=== PATIENT | female | born 1940 | race Caucasian/White ===

== ENCOUNTER → 2016-09-07 | Outpatient (CLI) | payer MEDICARE, BC ==
[~2016-09-07] MED LIST: ASPIRIN 81M81 MG/TA2 PO; COZAAR100 MG PO; DHEA 50 MG TAB1 EACH PO; DHEA PO; ELIQUIS 5MG PO; LASIX 20MG TABL20 MG PO; NATURAL POTASS595 MG PO; THE MEDICINE S200 M2 PO; TOPROL XL 50MG50 MG PO; VITAMIN D 400400 IU PO; ZESTRIL 10MG10 MG PO; ZOCOR 10MG10 MG PO
== END ==
LOC: MC.RAD 14:53
DX: Z12.31 Encounter for screening mammogram for malignant neoplasm of breast (principal); R92.1 Mammographic calcification found on diagnostic imaging of breast

== ENCOUNTER → 2017-02-27 | Outpatient (CLI) | payer MEDICARE, BC | LOC: COL.CARD 14:04 | DX: I34.0 Nonrheumatic mitral (valve) insufficiency (principal); Z86.79 Personal history of other diseases of the circulatory system ==

== ENCOUNTER → 2017-04-03 | Outpatient (CLI) | payer MEDICARE, BC | LOC: COL.PUL 10:10 | DX: R06.09 Other forms of dyspnea (principal); Z87.891 Personal history of nicotine dependence ==

== ENCOUNTER 2017-04-20 11:22 | Day surgery (SDC) | payer MEDICARE, BC ==
[~2017-04-20] VITALS: Ht 172.7 cm; Wt 77.7 kg
[2017-04-20] VITALS (11 sets, daily range): BP systolic 111–153; BP diastolic 53–81; PULSE 53–67; TEMP 97.9
[~2017-04-20 11:22] MED LIST changes: -ASPIRIN 81M81 MG/TA2 PO; -COZAAR100 MG PO; -DHEA 50 MG TAB1 EACH PO; -DHEA PO; -ELIQUIS 5MG PO; -NATURAL POTASS595 MG PO; -THE MEDICINE S200 M2 PO; -TOPROL XL 50MG50 MG PO; -VITAMIN D 400400 IU PO
[2017-04-20 12:01] LABS: HEMATOCRIT 41.5 % (37.0-47.0); HEMOGLOBIN 14.1 g/dl (12.5-16.0); MEAN CELL VOLUME 89 fl (80.0-100.0); MEAN CORPUSCULAR HEMOGLOBIN 30 pg (27.0-31.0); MEAN CORPUSCULAR HGB CONC 34 g/dl (33.0-37.0); MEAN PLATELET VOLUME 10.7 fl (7.4-10.4); PLATELET COUNT 156 K/mm3 (130-400); RED BLOOD COUNT 4.66 M/mm3 (4.10-5.30); REDCELL DISTRIBUTION WIDTH-CV 12.7 % (11.5-14.5); WHITE BLOOD COUNT 6.4 K/mm3 (4.8-10.8)
[2017-04-20] MEDS ORDERED: COZAAR100 MG PO (12:09)
[2017-04-20] MEDS ORDERED: TOPROL XL 50MG50 MG PO (12:10)
[2017-04-20 12:14] LABS: CALCIUM 9.4 mg/dL (8.4-10.2); CREATININE, serum 0.82 mg/dL (0.52-1.25); POTASSIUM 4.5 mmol/L (3.4-5.0)
[2017-04-20] MEDS ORDERED: ASPIRIN 81M81 MG/TA2 PO (13:07)
[2017-04-20] MEDS ORDERED: THE MEDICINE S200 M2 PO (13:14)
[2017-04-20] MEDS ORDERED: DHEA PO (13:15)
[2017-04-20] MEDS ORDERED: ELIQUIS 5MG PO (13:16)
[2017-04-20] MEDS ORDERED: NATURAL POTASS595 MG PO (13:16)
[2017-04-20] MEDS ORDERED: VITAMIN D 400400 IU PO (13:17)
[2017-04-20] MEDS ORDERED: DHEA 50 MG TAB1 EACH PO (13:18)
[2017-04-20 14:12] LABS: INR 1.1 (0.8-3.0); PROTHROMBIN TIME 12.1 SECONDS (9.7-12.8)
== END 2017-04-20 18:46 | disposition home or self-care (01) ==
LOC: EUO 11:22 → COL.CAR 11:30 → EUO 18:46
PROVIDERS: Internal Medicine Cardiovascular Disease
DX: I34.0 Nonrheumatic mitral (valve) insufficiency (principal); I48.0 Paroxysmal atrial fibrillation; I10 Essential (primary) hypertension; J30.9 Allergic rhinitis, unspecified; R59.1 Generalized enlarged lymph nodes; E78.5 Hyperlipidemia, unspecified; M19.90 Unspecified osteoarthritis, unspecified site; E04.1 Nontoxic single thyroid nodule; Z90.710 Acquired absence of both cervix and uterus; Z79.01 Long term (current) use of anticoagulants; Z87.891 Personal history of nicotine dependence; Z85.118 Personal history of other malignant neoplasm of bronchus and lung; Z82.5 Family history of asthma and other chronic lower respiratory diseases; Z82.62 Family history of osteoporosis; Z82.49 Family history of ischemic heart disease and other diseases of the circulatory system; Z83.3 Family history of diabetes mellitus
CPT/HCPCS: C1769; G9654; J2250; J2704; J3010; Q9967

== ENCOUNTER → 2017-12-08 | Outpatient (REF) ==
[~2017-12-08] MED LIST changes: +ASPIRIN 81M81 MG/TA2 PO; +BETAPACE 80MG80 MG PO; +COZAAR100 MG PO; +DHEA 50 MG TAB1 EACH PO; +DHEA PO; +ELIQUIS 5MG PO; +MAGNESIUM250 M1 PO; +NATURAL POTASS595 MG PO; +THE MEDICINE S200 M2 PO; +TOPROL XL 50MG50 MG PO; +VITAMIN B COMPL1 SGL PO; +VITAMIN D 400400 IU PO
[2017-12-08 14:38] LABS: IRON,SERUM 37 ug/dL (35-150); LACTATE DEHYDROGENASE 603 U/L (313-618)
[2017-12-08 14:47] LABS: TOTAL IRON BINDING CAPACITY 236 ug/dL (265-497)
== END ==
LOC: ZLAB.WCH 14:15
PROVIDERS: Internal Medicine
DX: Z01.89 Encounter for other specified special examinations (principal)

== ENCOUNTER → 2019-02-15 | Outpatient (CLI) | payer MEDICARE, BC | LOC: COL.VAS 14:29 | DX: Z13.6 Encounter for screening for cardiovascular disorders (principal); M79.89 Other specified soft tissue disorders; M79.605 Pain in left leg ==

== ENCOUNTER → 2019-04-10 | Outpatient (CLI) | payer MEDICARE, BC | LOC: COL.RAD 12:58 | DX: E04.2 Nontoxic multinodular goiter (principal); E05.90 Thyrotoxicosis, unspecified without thyrotoxic crisis or storm ==

== ENCOUNTER → 2019-04-25 | Outpatient (CLI) | payer MEDICARE, BC | LOC: COL.RAD 12:55 | DX: E05.90 Thyrotoxicosis, unspecified without thyrotoxic crisis or storm (principal) | CPT/HCPCS: A9516 ==

== ENCOUNTER 2019-06-03 09:28 | Emergency (ER) | payer MEDICARE, BC ==
[~2019-06-03] VITALS: Ht 172.7 cm; Wt 74.1 kg
[2019-06-03 09:52] VITALS: TEMP 97.6
[2019-06-03 10:30] LABS: BASO # 0.1 (0.0-0.2); BASO % 0.5 % (0.0-2.0); EOS # 0.3 (0.0-0.7); EOS % 3.2 % (0-4.0); GRAN # 5.9 (1.4-6.5); GRAN % 64.7 % (42.2-75.2); HEMATOCRIT 43.2 % (37.0-47.0); HEMOGLOBIN 14.4 g/dl (12.5-16.0); LYMPH # 2.3 (1.2-3.4); LYMPH % 25.6 % (20.0-51.0); MEAN CELL VOLUME 84 fl (80.0-100.0); MEAN CORPUSCULAR HEMOGLOBIN 28 pg (27.0-31.0); MEAN CORPUSCULAR HGB CONC 33 g/dl (33.0-37.0); MEAN PLATELET VOLUME 11.1 fl (7.4-10.4); MONO # 0.5 (0.1-0.6); MONO % 5.9 % (1.7-9.3); PLATELET COUNT 194 K/mm3 (130-400); RED BLOOD COUNT 5.12 M/mm3 (4.10-5.30); REDCELL DISTRIBUTION WIDTH-CV 13.2 % (11.5-14.5)
[2019-06-03 10:32] LABS: INR 1.6 (0.8-3.0); PROTHROMBIN TIME 18.6 SECONDS (9.7-12.8)
[2019-06-03] MEDS ORDERED: LOPRESSOR 550 MG/TAB PO (10:34)
[2019-06-03 10:35] LABS: PARTIAL THROMBOPLASTIN TIME 37.1 SECONDS (26.0-37.0)
[2019-06-03 10:41] LABS: ALANINE AMINOTRANSFERASE < 6 U/L (9-52); ALBUMIN 4.1 gm/dL (3.5-5.0); ALKALINE PHOSPHATASE 85 U/L (50-136); ANION GAP 9 mmol/L (7-16); AST,SGOT 20 U/L (15-37); BILIRUBIN,TOTAL 0.9 mg/dL (0.0-1.0); BLOOD UREA NITROGEN 18 mg/dL (7-17); CALCIUM 9.3 mg/dL (8.4-10.2); CARBON DIOXIDE 27 mmol/L (22-30); CHLORIDE 101 mmol/L (98-107); CREATININE, serum 0.87 (0.52-1.25); GLUCOSE 147 mg/dL (74-106); POTASSIUM 3.7 mmol/L (3.4-5.0); SODIUM 137 mmol/L (137-145); TOTAL PROTEIN 7.9 gm/dL (6.4-8.2)
[2019-06-03 12:35] LABS: THYROID STIMULATING HORMONE < 0.015 uIU/mL (0.465-4.680)
[2019-06-03] MEDS ORDERED: AMOXICILLIN 8751 TAB PO (13:44)
[2019-06-03] MEDS ORDERED: ZOFRAN ODT4 MG PO (13:44)
[2019-06-03 14:19] VITALS: BP 125/69; PULSE 72
== END 2019-06-03 14:21 | disposition home or self-care (01) ==
LOC: COL.ER 09:28
PROVIDERS: Emergency Medicine
DX: K52.9 Noninfective gastroenteritis and colitis, unspecified (principal); Z79.82 Long term (current) use of aspirin; Z79.01 Long term (current) use of anticoagulants
CPT/HCPCS: C9113; J7030; Q9967

== ENCOUNTER → 2020-07-15 | Outpatient (CLI) | payer MEDICARE, BC ==
[~2020-07-15] MED LIST changes: +AMOXICILLIN 8751 TAB PO; +LOPRESSOR 550 MG/TAB PO; +ZOFRAN ODT4 MG PO
== END ==
LOC: DIA.ED 10:16
DX: E11.9 Type 2 diabetes mellitus without complications (principal); Z79.84 Long term (current) use of oral hypoglycemic drugs; E78.5 Hyperlipidemia, unspecified; I10 Essential (primary) hypertension
CPT/HCPCS: G0108

== ENCOUNTER 2021-03-24 11:00 | Emergency (ER) | payer MEDICARE, BC ==
[~2021-03-24] VITALS: Ht 172.7 cm; Wt 70.5 kg
[~2021-03-24 11:00] MED LIST changes: +COZAAR 50MG50 MG/TAB PO; -COZAAR100 MG PO
[2021-03-24 11:48] LABS: BASO # 0.1 (0.0-0.2); BASO % 0.9 % (0.0-2.0); EOS # 0.2 (0.0-0.7); EOS % 2.3 % (0-4.0); GRAN # 4.6 (1.4-6.5); GRAN % 60.3 % (42.2-75.2); HEMATOCRIT 41.9 % (37.0-47.0); HEMOGLOBIN 13.6 g/dl (12.5-16.0); LYMPH # 2.2 (1.2-3.4); LYMPH % 29.4 % (20.0-51.0); MEAN CELL VOLUME 91 fl (80.0-100.0); MEAN CORPUSCULAR HEMOGLOBIN 29 pg (27.0-31.0); MEAN CORPUSCULAR HGB CONC 33 g/dl (33.0-37.0); MEAN PLATELET VOLUME 10.9 fl (7.4-10.4); MONO # 0.5 (0.1-0.6); PLATELET COUNT 196 K/mm3 (130-400); RED BLOOD COUNT 4.63 M/mm3 (4.10-5.30); REDCELL DISTRIBUTION WIDTH-CV 13.2 % (11.5-14.5)
[2021-03-24 11:50] LABS: ALANINE AMINOTRANSFERASE 18 U/L (4-34); ALBUMIN 4.6 gm/dL (3.5-5.0); ALKALINE PHOSPHATASE 73 U/L (50-136); ANION GAP 14 mmol/L (7-16); AST,SGOT 26 U/L (15-37); BILIRUBIN,TOTAL 1.2 mg/dL (0.0-1.0); BLOOD UREA NITROGEN 34 mg/dL (7-17); CALCIUM 9.7 mg/dL (8.4-10.2); CARBON DIOXIDE 26 mmol/L (22-30); CHLORIDE 102 mmol/L (98-107); CREATININE, serum 1.08 (0.52-1.25); GLUCOSE 126 mg/dL (74-106); SODIUM 142 mmol/L (137-145); TOTAL PROTEIN 8.7 gm/dL (6.4-8.2)
[2021-03-24 12:15] LABS: TROPONIN-I < 0.012 ng/mL (0.000-0.035)
[2021-03-24 12:17] LABS: INR 1.8 (0.8-3.0); PROTHROMBIN TIME 19.7 SECONDS (9.7-12.8)
[2021-03-24 13:28] VITALS: BP 160/72; PULSE 40
== END 2021-03-24 13:28 | disposition home or self-care (01) ==
LOC: COL.ER 11:00
PROVIDERS: Physician Assistant
DX: R00.1 Bradycardia, unspecified (principal); I48.0 Paroxysmal atrial fibrillation; I10 Essential (primary) hypertension; E78.5 Hyperlipidemia, unspecified; E11.9 Type 2 diabetes mellitus without complications; Z98.890 Other specified postprocedural states; Z79.82 Long term (current) use of aspirin; Z79.899 Other long term (current) drug therapy
CPT/HCPCS: J7030

== ENCOUNTER 2021-03-31 08:22 | Day surgery (SDC) | payer MEDICARE, BC ==
[2021-03-31] VITALS (10 sets, daily range): BP systolic 107–160; BP diastolic 51–68; PULSE 42–78; TEMP 98.1–98.6
[~2021-03-31] VITALS: Ht 172.8 cm; Wt 72.8 kg
[2021-03-31] MEDS ORDERED: VITAMIN D250 MCG PO (09:21)
[2021-03-31 09:55] LABS: HEMOGLOBIN 11.3 g/dl (12.5-16.0); MEAN CELL VOLUME 90 fl (80.0-100.0); MEAN CORPUSCULAR HEMOGLOBIN 30 pg (27.0-31.0); MEAN CORPUSCULAR HGB CONC 33 g/dl (33.0-37.0); PLATELET COUNT 176 K/mm3 (130-400); RED BLOOD COUNT 3.83 M/mm3 (4.10-5.30); REDCELL DISTRIBUTION WIDTH-CV 13.5 % (11.5-14.5)
[2021-03-31 10:00] LABS: HEMATOCRIT 34.4 % (37.0-47.0)
[2021-03-31 10:02] LABS: INR 1.2 (0.8-3.0); PROTHROMBIN TIME 12.8 SECONDS (9.7-12.8)
[2021-03-31 10:05] LABS: CREATININE, serum 1.09 (0.52-1.25); POTASSIUM 4.1 mmol/L (3.4-5.0)
[2021-03-31] MEDS ORDERED: GLUCOPHAGE500 MG/TAB PO (10:13)
[2021-03-31] MEDS ORDERED: ARICEPT10 MG PO (10:14)
[2021-03-31] MEDS ORDERED: ZOCOR 10MG10 MG PO (10:15)
[2021-03-31] MEDS ORDERED: TOPROL XL 25MG25 MG PO (10:15)
[2021-03-31] MEDS ORDERED: TURMERIC500 MG PO (10:16)
--- NOTE | 2021-03-31 10:35 | NUR ---
Pt to procedure at this time.Report to Erika Barnhart
--- NOTE | 2021-03-31 11:34 | NUR ---
SEE MERGE DOCUMENTATION FOR MEDICATION ADMINISTRATION AND INTRA/POST PROCEDURE SEDATION ASSESSMENTS.
--- NOTE | 2021-03-31 12:45 | NUR ---
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 Dressings x 2 to left chest CDI, ice pack placed to site. Pt denies pain at this time. IV to right hand without s/s of complications. Sling in place to left upper ext and POC with activity restrictions reviewed with pt. No further needs reported. Call light in reach.
--- NOTE | 2021-04-01 01:19 | NUR ---
Assessment completed, alert and oriented. VS are stable. Denies pain or SOB. Patient has 2x incision sites in her left anterior chest covered with gauze and papert tape, sling is in placed. Ice packed provided. VS are stable, tele is on Sinus with bundle brunch block. She had PACED put in and loop recorder took out. Patient is comfortably sleeping. No further complains. Call light is within reach. Will continue to monitor.
[2021-04-01 03:11] VITALS: BP 139/58; PULSE 71; TEMP 98.1
--- NOTE | 2021-04-01 07:00 | NUR ---
Report from ARMANI Arguelles. Pt resting in bed, drowsy but awake, denies pain, requesting breakfast which is ordered. Call light in reach.
[2021-04-01 07:50] VITALS: BP 140/69; PULSE 98; TEMP 98.3
[2021-04-01] MEDS ORDERED: CEPHALEXIN500 M1 PO (10:11)
--- NOTE | 2021-04-01 11:40 | NUR ---
IV discontinued from right hand with tip intact. Discharge instructions reviewed with pt and pt's family regarding activity restrictions, wound care, s/s of infection, appointments and medications. Questions invited and answered. Pt and family verbalize understanding.
--- NOTE | 2021-04-01 11:50 | NUR ---
Pt discharged home, escorted out of facility via WC accompanied by AIR TRAFFIC CONTROL EQUIPMENT REPAIRER and pt's family.
--- NOTE | 2021-04-01 16:18 | NUR ---
[employer] worker met with patient to discuss discharge planning. Patient resides with her spouse and plans to return home, possibly today. Patient states that her spouse will transport her home. Patient states that Dr Siddiqui is her primary care provider and that she has not completed advance directives. Worker and patient discussed directives and patient states she can address this with her contracts attorney. Patient stated her daughter has purchased a larger home and they are considering a move there eventually. Patient denies difficulty obtaining her prescriptions.
== END 2021-04-01 11:50 | disposition home or self-care (01) ==
LOC: COL.CAR 08:22 → MEDICAL 12:56 → COL.CAR 04-01 11:50
PROVIDERS: Internal Medicine Cardiovascular Disease
DX: I44.1 Atrioventricular block, second degree (principal); R00.1 Bradycardia, unspecified; R42 Dizziness and giddiness; I48.0 Paroxysmal atrial fibrillation; I10 Essential (primary) hypertension; E78.5 Hyperlipidemia, unspecified; E11.9 Type 2 diabetes mellitus without complications; Z20.822 Contact with and (suspected) exposure to COVID-19; Z79.84 Long term (current) use of oral hypoglycemic drugs; Z79.01 Long term (current) use of anticoagulants; Z85.110 Personal history of malignant carcinoid tumor of bronchus and lung; Z79.82 Long term (current) use of aspirin; Z79.899 Other long term (current) drug therapy; Z87.891 Personal history of nicotine dependence
CPT/HCPCS: OP; C1785; C1894; C1898; J0690; J2250; J3010